=== PATIENT | female | born 1990 | race Caucasian/White ===

== ENCOUNTER 2018-09-28 20:04 | Inpatient (IN) | payer OTHER ==
[~2018-09-28] VITALS: Ht 160 cm; Wt 65.7 kg
[2018-09-28 21:20] VITALS: BP 111/58
[2018-09-28 21:38] LABS: HEMATOCRIT 27.2 % (36.0-47.0); HEMOGLOBIN 8.1 g/dl (12.0-15.5); MEAN CORPUSCULAR HEMOGLOBIN 23.1 pg (27.0-33.0); MEAN CORPUSCULAR HGB CONC 29.8 g/dl (32.0-36.5); MEAN CORPUSCULAR VOLUME 77.7 fl (80.0-96.0); PLATELET COUNT, AUTOMATED 273 10^3/uL (150-450); WHITE BLOOD COUNT 11.5 10^3/uL (4.0-10.0)
[2018-09-28] MEDS ORDERED: MORPHINE 4 MG/ML 1ML VIAL/SYRINGE (J2270) IV PRN (22:00)
[2018-09-28] MEDS ORDERED: ONDANSETRON 4MG/2ML VIAL (J2405) IV PRN (22:00)
[2018-09-28 22:02] LABS: BLOOD UREA NITROGEN 6 MG/DL (7-18); CALCIUM LEVEL 7.1 MG/DL (8.5-10.1); CARBON DIOXIDE LEVEL 18 MEQ/L (21-32); CHLORIDE LEVEL 113 MEQ/L (98-107); CREATININE FOR GFR 0.66 MG/DL (0.55-1.30); GLOMERULAR FILTRATION RATE > 60.0 (>60); GLUCOSE, FASTING 81 MG/DL (70-100); POTASSIUM SERUM 3.7 MEQ/L (3.5-5.1); SODIUM LEVEL 141 MEQ/L (136-145)
--- NOTE | 2018-09-28 22:02 | HPEPDOC ---
[facility] Medical History & Physical Date of Admission Sep 28, 2018 Date of Service: Sep 28, 2018 History and Physical CHIEF COMPLAINT: L. sided abdominal pain HISTORY OF PRESENT ILLNESS: Patient is a 28-year-old female with past medical history of ulcerative colitis status post colectomy and nephrolithiasis presented to the ER at [place] for abdominal pain with concern for sepsis secondary to UTI as well as b/l hydronephrosis on CT scan along with b/l intrarenal calculi and small pericardial effusion. Patient was found to be hypotensive there with BP in the low 80s systolic and was treated with Abx and 4L IVF bolus before BP started to come up to 90s-100s systolic. Patient is found to be febrile and tachycardic to HR >110s, Lactic acid was normal x2. She was transferred from [place] to ICU for further care and urology evaluation. She currently denies any complaints but has a T of 102. PAST MEDICAL HISTORY: Refer to [facility] PAST SURGICAL HISTORY: Colectomy R. tubal ligation Ovarian cystectomy and salpingectomy SOCIAL HISTORY: Denies tobacco or illicit drug use. Social alcohol. FAMILY HISTORY: Father with HTN and Afib ALLERGIES: Please see below. REVIEW OF SYSTEMS: 10 point review of system negative except as stated in [facility] HOME MEDICATIONS: Please see below. PHYSICAL EXAMINATION: General: No acute distress, Alert Eyes: Normal sclera, EOMI, LEENA HENT: Atraumatic, neck supple, moist mucous membranes Cardiovascular: Normal rate, normal rhythm. No murmurs appreciated. Pulmonary: Clear to auscultation b/l, no wheezing GI: Soft, nontender, nondistended Skin: Warm and dry Neuro: CN grossly intact. No focal deficits. Strengths equal b/l. Psych: oriented x 3 LABORATORY DATA: See below. IMAGING: CT from [place]- b/l intrarenal calculi with b/l hydronephrosis as well as small pericardial effusion. MICROBIOLOGY: Please see below. ASSESSMENT AND PLAN: 1. b/l Intrarenal calculi with hydronephrosis with sepsis - CT findings from [place]. - Patient still febrile but BP is more stable now post 30 cc/kg bolus. - c/w Rocephin. - IVF support. Pineda catheter placed. - urology consult. - monitor renal function. 2. UC - No issues at this time. DVT ppx: HSQ Code status: Full code Laboratory Data Labs 24H Laboratory Tests 2 09/28/18 21:31: Nucleated Red Blood Cells % (auto) 0.0 CBC/BMP Laboratory Tests 09/28/18 21:31 Red Blood Count 3.50 L, Mean Corpuscular Volume 77.7 L, Mean Corpuscular Hemoglobin 23.1 L, Mean Corpuscular Hemoglobin Concent 29.8 L, Red Cell Distribution Width 15.1 H Home Medications No Active Prescriptions or Reported Meds A-FIB/CHADSVASC A-FIB History Current/History of A-Fib/PAF?: No DMITRY DURAN MD Sep 28, 2018 22:02
[2018-09-28] MEDS: NS 1,000 ML IV SCH (22:24)
[2018-09-28] MEDS: ACETAMINOPHEN TAB 650MG DOSE (2X325MG) PO PRN (22:24)
[2018-09-28 23:00] VITALS: BP 110/56
[2018-09-29] VITALS (9 sets, daily range): BP systolic 92–117; BP diastolic 47–65
[2018-09-29 04:39] LABS: HEMOGLOBIN 7.8 g/dl (12.0-15.5); MEAN CORPUSCULAR HEMOGLOBIN 22.1 pg (27.0-33.0); MEAN CORPUSCULAR HGB CONC 28.9 g/dl (32.0-36.5); MEAN CORPUSCULAR VOLUME 76.5 fl (80.0-96.0); PLATELET COUNT, AUTOMATED 250 10^3/uL (150-450); RED BLOOD COUNT 3.53 10^6/uL (4.00-5.40); WHITE BLOOD COUNT 11.6 10^3/uL (4.0-10.0)
[2018-09-29 05:00] LABS: BLOOD UREA NITROGEN 4 MG/DL (7-18); CALCIUM LEVEL 7.1 MG/DL (8.5-10.1); CARBON DIOXIDE LEVEL 18 MEQ/L (21-32); CHLORIDE LEVEL 114 MEQ/L (98-107); CREATININE FOR GFR 0.64 MG/DL (0.55-1.30); GLOMERULAR FILTRATION RATE > 60.0 (>60); GLUCOSE, FASTING 71 MG/DL (70-100); POTASSIUM SERUM 4.1 MEQ/L (3.5-5.1); SODIUM LEVEL 140 MEQ/L (136-145)
[2018-09-29] MEDS: NS 1,000 ML IV SCH ×3 (06:19→22:29)
--- NOTE | 2018-09-29 07:52 | SMCUROLCON ---
Urology Consultation General Date of Consultation 09/29/18 Reason For Consultation This patient is seen for Urosepsis. History of Present Illness This is a 28 y/o F w/ a PMH significant for ulcerative colitis and nephrolithiasis, transferred to [facility] ICU from [place] for likely urosepsis. She presented to [place] ER yesterday afternoon w/ a 5 day history of worsening left abd pain radiating to the left flank and fevers. She notes that at first the abd pain was mild and then became a lot worse yesterday. At [place] ER she was noted to have fevers to 102, was tachycardic, and hypotensive w/ SBP in the 80s at times. Her WBC there was 13 and her UA was notable for 40WBC/hpf and positive nitrites. Her Cr was normal at 0.7. A CT A/P was done there and was notable for severely distended bladder w/ b/l hydroureteronephrosis down to the level of the bladder. A 1.2cm nonobstructing stone was also seen in the lower pole of the left kidney. She was treated w/ rocephin in [place] and transferred to [facility] for ICU care. This morning the patient notes feeling better. Her pain is improved. Her T max here was 101.6 at midnight and has been trending down. She denied having dysuria or any urinary symptoms prior to her presentation to the ER. She denied having any feelings of incomplete emptying. Past Medical History Medical History see HPI Surgical Hstory partial colectomy for UC Medications Current Medications Current Medications Acetaminophen (Tylenol Tab) 650 mg Q4H PRN PO PAIN OR FEVER Last administered on 09/28/18at 22:24; Start 09/28/18 at 21:30 Ceftriaxone Sodium 1 gm/ Dextrose 50 ml @ 100 mls/hr Q24H IV ; Start 09/29/18 at 09:00 Home Med (Med Rec Complete!) ASDIRECTED XX ; Start 09/28/18 at 22:00; Stop 09/28/18 at 22:00; Status DC Morphine Sulfate (Morphine Sulfate Inj) 1 mg Q3HP PRN IV PAIN; Start 09/28/18 at 22:00 Ondansetron HCl (ZOFRAN INJection) 4 mg Q6HP PRN IV NAUSEA OR VOMITING; Start 09/28/18 at 22:00 Sodium Chloride 1,000 ml @ 125 mls/hr Q8H IV Last administered on 09/29/18at 06:19; Start 09/28/18 at 21:45 Allergies Allergies: Coded Allergies: meperidine (Verified Allergy, Mild, RASH, 09/28/18) Review of Systems Constitutional: Reports: Fever (yesterday) Pulmonary: Denies: Dyspnea, Cough Cardiovascular: Denies Chest Pain, Denies Palpitations Gastrointestinal: Reports: Abdominal Pain (left lower abd pain); Denies: Nausea, Vomiting Genitourinary: Denies: Dysuria, Frequency, Incontinence, Hematuria, Retention Musculoskeletal: Reports: Back Pain (left flank pain) Neurological: Denies: Weakness, Numbness, Incoordination, Change in Speech Psych: Reports: Mood Normal; Denies: Anxiety, Depression Physical Examination General Exam: Alert, Cooperative, No Acute Distress Chest Exam: Normal air movement Heart Exam: Regular Rhythm Abdomen Exam: Soft, Tenderness (mild LLQ tenderness) Skin Exam: Nl turgor and temperature Neuro Exam: Normal Speech Psych Exam: Mental status NL, Mood NL Vital Signs/I&O Vital Signs Date Time Temp Pulse Resp B/P (MAP) Pulse Ox O2 Delivery O2 Flow Rate FiO2 09/29/18 04:00 99.9 88 16 102/58 (73) 100 I&O- Last 24 Hours up to 6 AM 09/29/18 06:00 Intake Total 1740 ml Output Total 750 ml Balance 990 ml Laboratory Data 24H Labs Laboratory Tests 2 09/28/18 21:31: Nucleated Red Blood Cells % (auto) 0.0, Anion Gap 10, Glomerular Filtration Rate > 60.0, Blood Urea Nitrogen 6L, Creatinine 0.66, Sodium Level 141, Potassium Level 3.7, Chloride Level 113H, Carbon Dioxide Level 18L, Calcium Level 7.1L, Magnesium Level 2.0 09/29/18 04:19: Nucleated Red Blood Cells % (auto) 0.0, Anion Gap 8, Glomerular Filtration Rate > 60.0, Blood Urea Nitrogen 4L, Creatinine 0.64, Sodium Level 140, Potassium Level 4.1, Chloride Level 114H, Carbon Dioxide Level 18L, Calcium Level 7.1L 09/29/18 07:20: CBC/BMP Laboratory Tests 09/28/18 21:31 Red Blood Count 3.50 L, Mean Corpuscular Volume 77.7 L, Mean Corpuscular Hemoglobin 23.1 L, Mean Corpuscular Hemoglobin Concent 29.8 L, Red Cell Distribution Width 15.1 H, Calcium Level 7.1 L 09/29/18 04:19 Red Blood Count 3.53 L, Mean Corpuscular Volume 76.5 L, Mean Corpuscular Hemoglobin 22.1 L, Mean Corpuscular Hemoglobin Concent 28.9 L, Red Cell Distribution Width 15.2 H, Calcium Level 7.1 L Microbiology Microbiology 09/29/18 Blood Culture, Received Pending 09/29/18 Blood Culture, Received Pending 09/29/18 Urine Culture, Received Pending Assessment This is a 28 y/o F w/ likely urosepsis and b/l hydroureteronephrosis and a 1.2cm nonobstructing left kidney stone. Her CT A/P was reviewed and it appears that her b/l hydroureteronephrosis was likely due to the very distended bladder. She is improving clinically w/ IV abx and bladder drainage. I recommended getting a renal US to assess for improvement in the b/l hydro now that she has a catheter is in place. Plan - continue ICU care and broad spectrum abx per hospitalist service - f/u blood and urine culture results - keep catheter in for now - renal US (ordered) - keep NPO for now ERON HOWE MD Sep 29, 2018 07:37
--- NOTE | 2018-09-29 09:49 | REP ---
RENAL ULTRASOUND: HISTORY: Urosepsis. The kidneys are normal in echogenicity. The right kidney measures 4.8 cm in transverse by 3.3 cm in AP by 11.9 in cephalocaudal dimensions. The left kidney measures 5.2 cm in transverse by 5.1 cm in AP by 12.2 cm in cephalocaudal dimensions. There is mild left hydronephrosis. There is no right hydronephrosis. There is no mass. A 1 cm calcification is present in the lower pole of the left kidney. A Pineda catheter is present in the urinary bladder. A cyst is present in the left ovary. This measures 5 cm in maximum dimension. IMPRESSION: 1. Mild left hydronephrosis. 2. Left nephrocalcinosis. 3. 5 cm left ovarian cyst. Electronically Signed by Willie Ortega MD 09/29/2018 09:54 A
[2018-09-29] MEDS: cefTRIAXone SOD 1 GM in D5W MINI-BAG PLUS 50 ML IV SCH (09:50)
--- NOTE | 2018-09-29 14:06 | IPNPDOC ---
Text Note Date of Service The patient was seen on 09/29/18. NOTE Fatuma is seen on bedside rounds this morning, she states she is doing well, the pain in her left flank area is improving. She has no abdominal pain, pain with urination and has not noted any blood in her urine. She feels well otherwise, is a bit fatigued. Otherwise denies sob, cp, n/v or fevers. ROS: 12 point ROS reviewed with patient and only positive for above findings PE: Vitals: see below General: This is a 28 yo female laying comfortably in bed, NAD, speaking in full sentences HEENT: EOMI, moist mucus membranes, no JVD Resp: CTA b/l, no wheezing, rales or rhonchi Cardiac: normal s1 and s2., no murmurs, rubs or gallops Abdomen: soft, non tender, non distended, no rebound ridgity or guarding, some left flank tenderness to deep palpation, nabsx4, no hepatosplenomegaly or masses appreciated Extremities: no cyanosis, mottling or edema A&P: This is a 28 yo female who presented to [facility] with left sided flank pain and was transferred to [facility] for urosepsis. 1. Sepsis - 2/2 complicated urinary tract infection, in the setting of nephrolithiasis and hydronephrosis -urology consulted, appreciate their help, pt continues on ceftriaxone and IVF, c/w these for now -blood and urine cx still pending -will likely need to follow up on culture results from [facility] (re: pre-antibiotic cultures) -she has been afebrile since midnight when temp was 101.6 F, WBC stable, lactic .6 -renal u/s pending -pain control with morphine -zofran for n/v 2. Anemia -likely secondary to dilutional effect from IVF, continue to monitor for now, iron studies pending 3. DVT px -lovenox Disposition: Pt is doing well, renal u/s pending, c/w abx and IVF at this time. Pain well controlled. VS,Fishbone, I+O VS, Fishbone, I+O Laboratory Tests 09/28/18 21:31 Red Blood Count 3.50 L, Mean Corpuscular Volume 77.7 L, Mean Corpuscular Hemoglobin 23.1 L, Mean Corpuscular Hemoglobin Concent 29.8 L, Red Cell Dis tribution Width 15.1 H, Calcium Level 7.1 L 09/29/18 04:19 Red Blood Count 3.53 L, Mean Corpuscular Volume 76.5 L, Mean Corpuscular Hemoglobin 22.1 L, Mean Corpuscular Hemoglobin Concent 28.9 L, Red Cell Distribution Width 15.2 H, Calcium Level 7.1 L Vital Signs Date Time Temp Pulse Resp B/P (MAP) Pulse Ox O2 Delivery O2 Flow Rate FiO2 09/29/18 11:56 100.6 101 17 107/56 (73 98 I&O- Last 24 Hours up to 6 AM 09/29/18 06:00 Intake Total 1740 ml Output Total 750 ml Balance 990 ml GME ATTESTATION GME ATTESTATION My faculty preceptor for this patient encounter was physically present during the encounter and was fully available. All aspects of the patient interview, e xamination, medical decision making process, and medical care plan development were reviewed and approved by the faculty preceptor. The faculty preceptor is aware and concurs with the plan as stated in the body of this note and will attest to such by his/her cosignature. ATTENDING NOTE I, Miranda Brewer, have both independently examined this patient as well as reviewed the documentation. I have discussed in detail with the resident the findings and plan of treatment as documented by the resident. I agree with their findings and treatment plan. I will continue to follow the patient and offer further guidance to the patients care as necessary during this hospital stay. PRANAY SHEPARD DO Sep 29, 2018 14:06 MIRANDA BREWER MD Sep 29, 2018 15:00
[2018-09-29] MEDS: ENOXAPARIN 40 MG/0.4 ML SYRINGE (J1650) SC SCH (15:22)
[2018-09-29 19:10] LABS: BLOOD UREA NITROGEN 2 MG/DL (7-18); CALCIUM LEVEL 7.6 MG/DL (8.5-10.1); CARBON DIOXIDE LEVEL 16 MEQ/L (21-32); CHLORIDE LEVEL 113 MEQ/L (98-107); CREATININE FOR GFR 0.62 MG/DL (0.55-1.30); GLOMERULAR FILTRATION RATE > 60.0 (>60); GLUCOSE, FASTING 107 MG/DL (70-100); POTASSIUM SERUM 3.7 MEQ/L (3.5-5.1); SODIUM LEVEL 140 MEQ/L (136-145)
[2018-09-29 19:16] LABS: PERCENT SATURATION 2.9 % (13.2-45.0)
[2018-09-29] MEDS: ACETAMINOPHEN TAB 650MG DOSE (2X325MG) PO PRN (21:27)
[2018-09-30] VITALS: BP 113/55
[2018-09-30 04:00] VITALS: BP 110/59
[2018-09-30 06:00] VITALS: BP 109/68
[2018-09-30] MEDS: NS 1,000 ML IV SCH (06:48)
[2018-09-30 08:05] LABS: BASO # 0.1 10^3/uL (0.0-0.2); BASO % 1.2 % (0.0-1.0); EOS # 0.2 10^3/uL (0.0-0.50); EOS % 2.3 % (0.0-3.0); HEMATOCRIT 27.5 % (36.0-47.0); HEMOGLOBIN 8.1 g/dl (12.0-15.5); LYMPH # 2.4 10^3/uL (1.5-6.5); LYMPH % 34.9 % (24.0-44.0); MEAN CORPUSCULAR HEMOGLOBIN 22.3 pg (27.0-33.0); MEAN CORPUSCULAR HGB CONC 29.5 g/dl (32.0-36.5); MEAN CORPUSCULAR VOLUME 75.8 fl (80.0-96.0); NEUTROPHILS # 3.2 10^3/uL (1.8-7.7); NEUTROPHILS % 46.3 % (36.0-66.0); PLATELET COUNT, AUTOMATED 295 10^3/uL (150-450); RED BLOOD COUNT 3.63 10^6/uL (4.00-5.40); WHITE BLOOD COUNT 6.9 10^3/uL (4.0-10.0)
[2018-09-30] MEDS: cefTRIAXone SOD 1 GM in D5W MINI-BAG PLUS 50 ML IV SCH (08:22)
[2018-09-30] MEDS: ENOXAPARIN 40 MG/0.4 ML SYRINGE (J1650) SC SCH (08:23)
[2018-09-30 08:30] LABS: BLOOD UREA NITROGEN 1 MG/DL (7-18); CARBON DIOXIDE LEVEL 22 MEQ/L (21-32); CHLORIDE LEVEL 114 MEQ/L (98-107); CREATININE FOR GFR 0.51 MG/DL (0.55-1.30); GLOMERULAR FILTRATION RATE > 60.0 (>60); GLUCOSE, FASTING 92 MG/DL (70-100); SODIUM LEVEL 142 MEQ/L (136-145)
[2018-09-30] MEDS ORDERED: FERROUS SULFATE 325MG TAB PO SCH (09:00)
[2018-09-30 09:57] LABS: CREATININE,RANDOM URINE 14.2 MG/DL; POTASSIUM RANDOM URINE 4.4 MEQ/L
--- NOTE | 2018-09-30 10:51 | DS.PDOC ---
Discharge Summary General Date of Admission Sep 28, 2018 at 21:15 Date of Discharge 09/30/18 Discharge Summary DISCHARGE DIAGNOSIS: Sepsis 2/2 Complicated Urinary tract infection, in the setting of b/l hydrour eteronephrosis and a 1.2cm nonobstructing left kidney stone SECONDARY DIAGNOSIS: Anemia - likely 2/2 iron deficiency PROCEDURES PERFORMED DURING STAY: None CONSULTANTS: Urology HOSPITAL COURSE: During the course of the hospital stay, she was treated with IVF and IV abx., she had rick cath. placed and was seen by urology inpatient. She states that her left flank pain/discomfort has resolved, she has no abdominal discomfort, she feels well and would like to go home, she has been walking around the room without difficulty. She is eating and drinking well, no pain with urination, her rick cath was pulled at about 6 am., since then she has had two voids with about 100 cc and then about 40 cc residual on PVR checks. She will follow up with pcp and urology outpatient within 5-7 days of dc. uLcho echols with [facility] where she presented first, it looks like her urine cultures were positive for enterobacter aerogenes, we have their sensitivities., she will be d/c on oral abx. She did have anemia during the hospital stay, iron studies suggest iron def. anemia, no blood transfusion took place, she was stable, we will d/c her on oral iron supplementation. No active source of bleeding suspected during stay. DISCHARGE MEDICATIONS: Please see below. ALLERGIES: Please see below. SUBJECTIVE: Patient is sitting upright in bed watching her ipad Netflix., she feels well. She wants to go home. Otherwise patient denies chest pain, shortness, breath, nausea, vomiting, fevers, chills. OBJECTIVE: PHYSICAL EXAMINATION: VITAL SIGNS: Please see below. GENERAL: Pleasant 28 year old female, sitting up in bed awake alert oriented speaking in complete sentences no acute distress HEENT: Moist mucous membranes no elevation and CVP CARDIOVASCULAR: normal S1 S2 regular no additional heart sounds appreciated RESPIRATORY: Clear to auscultation bilaterally, no rales, rhonchi or wheezing appreciated ABDOMINAL: abdomen soft and nontender, nabsx4, no rebound ridgity or guarding, no distension, no hepatosplenomegaly and no distension EXTREMITIES: No clubbing, cyanosis, edema NEUROLOGICAL: Spontaneously moves all 4 extremities no gross focal deficits appreciated PSYCHOLOGICAL: Appropriate affect LABORATORY DATA, MICROBIOLOGY:Urine cx pending at time of d/c and blood cx neg in our facility this admission, however urine cx taken .09.11 from [place] was faxed to us and shows + urine cx for enterobacter areogenes with sensitivities. ASSESSMENT AND PLAN: This is a 28 yo female who was transferred to [facility] from [facility] for Urosepsis. PROBLEMS: 1. Sepsis 2/2 complicated UTI, int he setting of b/l hydroureteronephrosis and a 1.2cm nonobstructing left kidney stone 2. Anemia DISPOSITION: Stable to go home DISCHARGE CONDITION: Improved and Stable [PROGNOSIS]: favorable FOLLOW UP: - Follow up with PCP and Urology within 5-7 days - Remain compliant with treatment plan and medications - Return to the ER if you experience any problems ACTIVITY: As prior to admission DIET: As prior to admission TIME SPENT ON DISCHARGE: 50 minutes Vital Signs/I&Os Vital Signs Date Time Temp Pulse Resp B/P (MAP) Pulse Ox O2 Delivery O2 Flow Rate FiO2 09/30/18 06:00 96.8 80 18 109/68 (82) 100 I&O- Last 24 Hours up to 6 AM 09/30/18 06:00 Intake Total 3890 ml Output Total 3250 ml Balance 640 ml Laboratory Data Labs 24H Laboratory Tests 2 09/29/18 18:34: Reticulocyte # (auto) 35.1, Percent Reticulocyte Count 1.0, Reticulocyte Hemoglobin Equivalent 22.9L, Anion Gap 11, Glomerular Filtration Rate > 60.0, Blood Urea Nitrogen 2L, Creatinine 0.62, Sodium Level 140, Potassium Level 3.7, Chloride Level 113H, Carbon Dioxide Level 16L, Calcium Level 7.6L, Magnesium Level 2.0, Iron Level 8L, Total Iron Binding Capacity 275, Transferrin % Satur ation 2.9L, Ferritin 44 09/30/18 07:49: Anion Gap 6L, Glomerular Filtration Rate > 60.0, Blood Urea Nitrogen 1L, Creatinine 0.51L, Sodium Level 142, Potassium Level 4.0, Chloride Level 114H, Carbon Dioxide Level 22, Calcium Level 8.0L, Magnesium Level 2.0, Immature Granulocyte % (Auto) 0.3, White Blood Count 6.9, Red Blood Count 3.63L, Hemoglobin 8.1L, Hematocrit 27.5L, Mean Corpuscular Volume 75.8L, Mean Corpuscular Hemoglobin 22.3L, Mean Corpuscular Hemoglobin Concent 29.5L, Red Cell Distribution Width 15.1H, Platelet Count 295, Neutrophils (%) (Auto) 46.3, Lymphocytes (%) (Auto) 34.9, Monocytes (%) (Auto) 15.0H, Eosinophils (%) (Auto) 2.3, Basophils (%) (Auto) 1.2H, Neutrophils # (Auto) 3.2, Lymphocytes # (Auto) 2.4, Monocytes # (Auto) 1.0H, Eosinophils # (Auto) 0.2, Basophils # (Auto) 0.1, Nucleated Red Blood Cells % (auto) 0.0 09/30/18 08:00: Urine Random Creatinine 14.2, Urine Random Sodium 76, Urine Random Potassium 4.4, Urine Random Chloride 93 CBC/BMP Laboratory Tests 09/29/18 18:34 Calcium Level 7.6 L 09/30/18 07:49 Calcium Level 8.0 L, Red Blood Count 3.63 L, Mean Corpuscular Volume 75.8 L, Mean Corpuscular Hemoglobin 22.3 L, Mean Corpuscular Hemoglobin Concent 29.5 L, Red Cell Distribution Width 15.1 H, Neutrophils (%) (Auto) 46.3, Lymphocytes (%) (Auto) 34.9, Monocytes (%) (Auto) 15.0 H, Eosinophils (%) (Auto) 2.3, Basophils (%) (Auto) 1.2 H, Neutrophils # (Auto) 3.2, Lymphocytes # (Auto) 2.4, Monocytes # (Auto) 1.0 H, Eosinophils # (Auto) 0.2, Basophils # (Auto) 0.1 Microbiology Microbiology 09/29/18 Blood Culture - Preliminary, Resulted No growth after 24 hours . All specim... 09/29/18 Blood Culture - Preliminary, Resulted No growth after 24 hours . All specim... 09/29/18 Urine Culture, Received Pending Discharge Medications Scheduled Ferrous Sulfate (Ferrous Sulfate) 325 Mg Tablet, 325 MG PO BID Levofloxacin (Levofloxacin) 750 Mg Tablet, 1 TAB PO DAILY Allergies Coded Allergies: meperidine (Verified Allergy, Mild, RASH, 09/28/18) GME ATTESTATION GME ATTESTATION My faculty preceptor for this patient encounter was physically present during the encounter and was fully available. All aspects of the patient interview, examination, medical decision making process, and medical care plan development were reviewed and approved by the faculty preceptor. The faculty preceptor is aware and concurs with the plan as stated in the body of this note and will attest to such by his/her cosignature. ATTENDING NOTE I, Miranda Del Toro, have both independently examined this patient as well as reviewed the documentation. I have discussed in detail with the resident the findings and plan of treatment as documented by the resident. I agree with their findings and treatment plan. I will continue to follow the patient and offer further guidance to the patients care as necessary during this hospital stay. Time spent on discharge 35 minutes PRANAY SHEPARD DO Sep 30, 2018 10:51 MIRANDA DEL TORO MD Sep 30, 2018 14:02
[2018-09-30] MEDS ORDERED: LEVO750T13 PO (10:55)
[2018-09-30] MEDS ORDERED: FERR325T18 PO (10:55)
--- NOTE | 2018-09-30 12:15 | IPNPDOC ---
Subjective Review oF Systems Chief Complaint The patient is a 28-year-old female admitted with a reason for visit of Urosepsis. Events since Last Encounter No acute events o/n. Patient notes she feels much better today. Denies flank or abd pain. No f/c/ns. Objective Physical Examination General Exam: Alert, Cooperative, No Acute Distress ABDOMEN EXAM: Soft; No: Tenderness, Mass Skin Exam: Nl turgor and temperature Neuro Exam: Normal Speech Psych Exam: Mental status NL, Mood NL Vital Signs/I&O Vital Signs Date Time Temp Pulse Resp B/P (MAP) Pulse Ox O2 Delivery O2 Flow Rate FiO2 09/30/18 06:00 96.8 80 18 109/68 (82) 100 I&O- Last 24 Hours up to 6 AM 09/30/18 06:00 Intake Total 3890 ml Output Total 3250 ml Balance 640 ml Laboratory Data Labs 24H Laboratory Tests 2 09/29/18 18:34: Reticulocyte # (auto) 35.1, Percent Reticulocyte Count 1.0, Reticulocyte Hemoglobin Equivalent 22.9L, Anion Gap 11, Glomerular Filtration Rate > 60.0, Blood Urea Nitrogen 2L, Creatinine 0.62, Sodium Level 140, Potassium Level 3.7, Chloride Level 113H, Carbon Dioxide Level 16L, Calcium Level 7.6L, Magnesium Level 2.0, Iron Level 8L, Total Iron Binding Capacity 275, Transferrin % Saturation 2.9L, Ferritin 44 09/30/18 07:49: Anion Gap 6L, Glomerular Filtration Rate > 60.0, Blood Urea Nitrogen 1L, Creatinine 0.51L, Sodium Level 142, Potassium Level 4.0, Chloride Level 114H, Carbon Dioxide Level 22, Calcium Level 8.0L, Magnesium Level 2.0, Immature Granulocyte % (Auto) 0.3, White Blood Count 6.9, Red Blood Count 3.63L, Hemoglobin 8.1L, Hematocrit 27.5L, Mean Corpuscular Volume 75.8L, Mean Corpuscular Hemoglobin 22.3L, Mean Corpuscular Hemoglobin Concent 29.5L, Red Cell Distribution Width 15.1H, Platelet Count 295, Neutrophils (%) (Auto) 46.3, Lymphocytes (%) (Auto) 34.9, Monocytes (%) (Auto) 15.0H, Eosinophils (%) (Auto) 2.3, Basophils (%) (Auto) 1.2H, Neutrophils # (Auto) 3.2, Lymphocytes # (Auto) 2.4, Monocytes # (Auto) 1.0H, Eosinophils # (Auto) 0.2, Basophils # (Auto) 0.1, Nucleated Red Blood Cells % (auto) 0.0 09/30/18 08:00: Urine Random Creatinine 14.2, Urine Random Sodium 76, Urine Random Potassium 4.4, Urine Random Chloride 93 CBC/BMP Laboratory Tests 09/29/18 18:34 Calcium Level 7.6 L 09/30/18 07:49 Calcium Level 8.0 L, Red Blood Count 3.63 L, Mean Corpuscular Volume 75.8 L, Mean Corpuscular Hemoglobin 22.3 L, Mean Corpuscular Hemoglobin Concent 29.5 L, Red Cell Distribution Width 15.1 H, Neutrophils (%) (Auto) 46.3, Lymphocytes (%) (Auto) 34.9, Monocytes (%) (Auto) 15.0 H, Eosinophils (%) (Auto) 2.3, Basophils (%) (Auto) 1.2 H, Neutrophils # (Auto) 3.2, Lymphocytes # (Auto) 2.4, Monocytes # (Auto) 1.0 H, Eosinophils # (Auto) 0.2, Basophils # (Auto) 0.1 Microbiology Microbiology 09/29/18 Blood Culture - Preliminary, Resulted No growth after 24 hours . All specim... 09/29/18 Blood Culture - Preliminary, Resulted No growth after 24 hours . All specim... 09/29/18 Urine Culture, Received Pending Assessment/Plan Date Seen The patient was seen on 09/30/18. Patient Summary This is a 28 y/o F w/ urosepsis and b/l hydroureteronephrosis and a 1.2cm nonobstructing left kidney stone. Renal US done yesterday showed resolution of hydro on the right and mild hydro on the left and an empty bladder, indicating that hydro seen on CT scan was due to a very distended bladder. Her catheter was removed today and PVRs were 100cc after the 1st void and 40cc after the 2nd void. Her blood cultures from [place] have come back positive. Plan/VTE VTE Prophylaxis Ordered?: Yes VTE Exclusion Mechanical Proph: N/A:VTE Prophy Ordered Plan - no need for catheterization as the patient's PVRs have been low - f/u culture results and adjust abx accordingly - my office will schedule f/u for the patient to be seen in 1-2 wks - we will check another PVR at that time to ensure she is still emptying well and discuss treatment for her left kidney stone (either ESWL or ureteroscopy w/ laser lithotripsy) ERON HOWE MD Sep 30, 2018 12:15
--- NOTE | 2018-09-30 18:29 | ECHO ---
DATE OF PROCEDURE: 09/29/2018 Date of : 1990 Age: 28 Height: 63 inches Weight: 152 pounds Body surface area: 1.72 meters squared Inpatient: Intensive care unit (ICU), Room 3209. REFERRING PHYSICIAN: Dr. Shelley Paredes INDICATION: Pericardial effusion. MEASUREMENTS: 2D Measurements: RV: 3.8 cm LV: 4.6 cm Septum: 0.9 cm Posterior wall: 0.9 cm Aortic root: 2.5 cm LA: 3.1 cm LVEF: 75% Doppler Measurements: AV: 1.6 meters per second LVOT: 1.2 meters per second LVOT diameter: 2.1 cm MV-E: 120, A: 100, EA ratio: 1.2 Early mitral deceleration time: 173 milliseconds E prime: 12.4, A prime: 8, E/E prime ratio: 9.8 PV: 1.1 meters per second Pulmonary artery acceleration time: 141 milliseconds RVSP: 24 mmHg IVC: 2.2 cm COMMENTS: Normal sinus rhythm without intraventricular conduction disturbance. M-mode and two-dimensional echocardiography was performed with pulsed, continuous wave, color flow and tissue Doppler studies. Normal left ventricular size, wall thickness and hyperkinetic wall motion. Normal left atrial size and Doppler assessment of left ventricular (LV) diastolic function and mean left atrial pressure. Normal right heart chamber sizes and motion with normal estimated pulmonary arterial pressure. Normal inferior vena cava (IVC) size upper limits of normal with normal respiratory collapse against an elevated central venous pressure. Normal appearing and functioning valvular structures. Normal aortic root size. No apparent intracardiac mass or pericardial effusion.
== END 2018-09-30 15:20 | disposition home or self-care (01) | DRG 872 ==
LOC: M ICU 21:15 → M MSPAV 09-30 05:08
PROVIDERS: ADMIT Student in an Organized Health Care Education/Training Program; ATTEND Internal Medicine
DX: A41.9 Sepsis, unspecified organism (principal); N39.0 Urinary tract infection, site not specified; N13.2 Hydronephrosis with renal and ureteral calculous obstruction; D64.9 Anemia, unspecified; Z90.49 Acquired absence of other specified parts of digestive tract; Z88.8 Allergy status to other drugs, medicaments and biological substances

== ENCOUNTER → 2018-10-28 | Outpatient (CLI) | payer OTHER ==
[~2018-10-28] MED LIST: FERR1TAB8 PO; FERR325T18 PO; LEVO750T13 PO
[2018-10-28 12:35] LABS: HEMATOCRIT 34.9 % (36.0-47.0); HEMOGLOBIN 10.3 g/dl (12.0-15.5); MEAN CORPUSCULAR HGB CONC 29.5 g/dl (32.0-36.5); MEAN CORPUSCULAR VOLUME 77.9 fl (80.0-96.0); PLATELET COUNT, AUTOMATED 381 10^3/uL (150-450); RED BLOOD COUNT 4.48 10^6/uL (4.00-5.40); WHITE BLOOD COUNT 11.1 10^3/uL (4.0-10.0)
[2018-10-28 12:38] LABS: APPEARANCE, URINE CLEAR (CLEAR); BACTERIA, URINE AUTO NEGATIVE (NEGATIVE); BILIRUBIN, URINE AUTO NEGATIVE (NEGATIVE); BLOOD, URINE BLOOD NEGATIVE (NEGATIVE); COLOR, URINE STRAW (YELLOW); GLUCOSE, URINE (UA) AUTO NEGATIVE (NEGATIVE); KETONE, URINE AUTO NEGATIVE (NEGATIVE); LEUKOCYTE ESTERASE, URINE AUTO NEGATIVE (NEGATIVE); NITRITE, URINE AUTO NEGATIVE (NEGATIVE); PROTEIN, URINE AUTO NEGATIVE (NEGATIVE); RBC, URINE AUTO 2 /HPF (0-3); SPECIFIC GRAVITY URINE AUTO 1.003 (1.002-1.035); SQUAMOUS EPITHELIAL CELL UR AU 0 /HPF (0-6); UROBILINOGEN, URINE AUTO 0.2 mg/dL (0.0-2.0); WBC, URINE AUTO 1 /HPF (0-3)
[2018-10-28 12:47] LABS: INR 1.07; PROTHROMBIN TIME 13.6 SECONDS (11.8-14.0)
[2018-10-28 12:48] LABS: PARTIAL THROMBOPLASTIN TIME 30.1 SECONDS (25.0-38.4)
[2018-10-28 13:02] LABS: BLOOD UREA NITROGEN 15 MG/DL (7-18); CALCIUM LEVEL 9.3 MG/DL (8.5-10.1); CARBON DIOXIDE LEVEL 27 MEQ/L (21-32); CHLORIDE LEVEL 105 MEQ/L (98-107); CREATININE FOR GFR 0.85 MG/DL (0.55-1.30); GLOMERULAR FILTRATION RATE > 60.0 (>60); GLUCOSE, FASTING 78 MG/DL (70-100); POTASSIUM SERUM 3.9 MEQ/L (3.5-5.1); SODIUM LEVEL 138 MEQ/L (136-145)
== END ==
LOC: M LAB 11:40
PROVIDERS: ATTEND Nurse Practitioner Family
DX: N20.0 Calculus of kidney (principal); Z01.818 Encounter for other preprocedural examination

== ENCOUNTER 2018-11-01 09:46 | Day surgery (SDC) | payer OTHER ==
[~2018-11-01] VITALS: Ht 160 cm; Wt 62.1 kg
[~2018-11-01 09:46] MED LIST changes: +LR 1,000 ML IV ONE
[2018-11-01] MEDS ORDERED: LIDOCAINE 2% INJ 100 MG/5 ML SDV (FOR ANES.) As Ordered ONE (09:52)
[2018-11-01] MEDS ORDERED: PROPOFOL 200 MG/20 ML VIAL As Ordered ONE (09:52)
[2018-11-01] MEDS ORDERED: fentaNYL 100 MCG/2 ML INJECTION (J3010) As Ordered ONE (09:53)
[2018-11-01] MEDS ORDERED: MIDAZOLAM INJ 2 MG/2 ML VIAL (J2250) As Ordered ONE (09:53)
[2018-11-01 10:26] LABS: URINE PREG TEST NEGATIVE (NEGATIVE)
[2018-11-01] MEDS ORDERED: CONRAY-60 60% 50ML VIAL (Q9961) As Ordered ONE (11:48)
[2018-11-01] MEDS ORDERED: dexameTHASONE 4 MG/ML 1ML VIAL (J1100) As Ordered ONE (12:17)
[2018-11-01] MEDS ORDERED: ONDANSETRON 4MG/2ML VIAL (J2405) As Ordered ONE (12:17)
[2018-11-01] MEDS ORDERED: METOCLOPRAMIDE INJ 10MG/2ML VIAL (J2765) As Ordered ONE (12:35)
[2018-11-01] MEDS ORDERED: ePHEDrine SULFATE 25 MG/5 ML(5MG/ML) SYRINGE As Ordered ONE (12:41)
--- NOTE | 2018-11-01 13:19 | REP ---
Retrograde pyelogram: Two views. History: Cyst O. Findings: A sequence of two last image hold fluoroscopically obtained spot radiographs of the abdomen document left ureteral cannulation, contrast injection, and stent placement. 14 seconds of fluoroscopy time is reported. Electronically Signed by Kaveh Lara MD 11/01/2018 01:10 P
[2018-11-01] MEDS ORDERED: ONDANSETRON 4MG/2ML VIAL (J2405) IV PRN (13:30)
[2018-11-01] MEDS ORDERED: PERCOCET 5MG/325MG TAB PO PRN ×2 (13:30)
[2018-11-01] MEDS ORDERED: fentaNYL 100 MCG/2 ML INJECTION (J3010) IV PRN (13:30)
[2018-11-01] MEDS ORDERED: LR 1,000 ML IV SCH (13:30)
[2018-11-01] MEDS ORDERED: HYDROMORPHONE HCL 0.5 MG/ 0.5 ML SYRINGE (J1170 PER 1) IV PRN (13:30)
[2018-11-01] MEDS ORDERED: oxyBUTYnin 5 MG TAB PO PRN (13:30)
[2018-11-01 14:30] VITALS: BP 111/51
--- NOTE | 2018-11-03 08:34 | RO ---
DATE OF PROCEDURE: 11/01/2018 PREPROCEDURE DIAGNOSIS: Left kidney stone. POSTPROCEDURE DIAGNOSIS: Left kidney stone. PROCEDURE: Cystoscopy, left ureteroscopy, laser lithotripsy with basket extraction of stones, left retrograde pyelogram with intraoperative interpretation of images, left ureteral stent placement. SURGEON: Dr. Ryan Holloway [employer] TE[employer]ER: None. ANESTHESIA: General. OPERATIVE INDICATIONS: This is a 28-year-old female who was found to have a 1.2 cm lower pole left kidney stone recently. She was brought to the operating room today for the above listed procedure. DESCRIPTION OF PROCEDURE: The patient was brought to the operating room, where general anesthesia was induced. Prophylactic antibiotics were infused. She was then placed in the dorsal lithotomy position and prepped and draped in the usual sterile fashion. A rigid cystoscope was then inserted into the urethral meatus and advanced into the bladder. Once inside the bladder, a guidewire was advanced up the left collecting system. I then advanced a ureteral access sheath up the left collecting system. I went back in the sheath with a flexible ureteroscope. The 1.2 cm stone was seen in the lower pole calyx. The stone was grasped with a basket and repositioned to the upper pole calyx. The stone was fragmented into smaller pieces using a 200 micron laser fiber. All the fragments were removed using a basket. Once satisfied all the fragments were removed, a retrograde pyelogram was performed and noted mild left hydronephrosis and no extravasation. I then withdrew the ureteroscope along with the access sheath and no additional stones were seen within the ureter. I utilized a wire to advanced a #6-Kosovan x 22-32 cm JJ ureteral stent up the left collecting system. The wire was then removed, and there were adequate curls of the stent in the left renal pelvis and in the bladder. The bladder was then emptied of all fluid, and this marked the conclusion of the procedure. The patient was then taken out of the dorsal lithotomy position, awakened from anesthesia, and transported to the recovery room in stable condition. ESTIMATED BLOOD LOSS: 5 mL. COMPLICATIONS: None. SPECIMENS: Kidney stone fragments. PLAN: The patient will followup in the clinic in a week or two for stent removal.
== END 2018-11-01 15:00 | disposition home or self-care (01) ==
LOC: M SDC 09:46
PROVIDERS: ATTEND Urology
DX: N20.0 Calculus of kidney (principal); R33.9 Retention of urine, unspecified; K51.90 Ulcerative colitis, unspecified, without complications; D64.9 Anemia, unspecified; Z88.8 Allergy status to other drugs, medicaments and biological substances
CPT/HCPCS: 52356; 74420; 82360; 84703; 88300; C1769; C1894; C2617; J0690; J1100; J2250; J2405; J2765; J3010; Q9961

== ENCOUNTER → 2018-11-17 | Outpatient (CLI) | payer OTHER ==
[~2018-11-17] MED LIST changes: -LR 1,000 ML IV ONE
--- NOTE | 2018-11-18 09:23 | REP ---
Clinical: Kidney stone. Technique: Single supine view of the abdomen and pelvis. Comparison: None. Findings: Left ureteral stent in satisfactory position. Small left intrarenal calculi measuring up to approximately 3 mm are suspected. No obvious ureteral calcification noted. Surgical clips scattered within the abdomen and pelvis. Bowel gas pattern is nonspecific. No organomegaly. Skeletal structures are intact. Impression: Left ureteral stent in satisfactory position. Suspected small nonobstructing left renal calculi up to 3 mm. Electronically Signed by Mike Martínez MD 11/18/2018 09:15 A
== END ==
LOC: M SMT 08:14
PROVIDERS: ATTEND Specialist
DX: N20.0 Calculus of kidney (principal)

== ENCOUNTER → 2018-12-01 | Outpatient (REF) | payer OTHER ==
[2018-12-03 14:10] LABS: HPV HYBRID CAPTURE II Negative (Negative)
== END ==
LOC: M LAB REF 17:15
PROVIDERS: ATTEND Advanced Practice Midwife
DX: Z12.4 Encounter for screening for malignant neoplasm of cervix (principal); R87.610 Atypical squamous cells of undetermined significance on cytologic smear of cervix (ASC-US)
CPT/HCPCS: 87624; G0123

== ENCOUNTER → 2020-06-07 | Outpatient (REF) | payer OTHER | LOC: M SFHCWAGY 16:54 | PROVIDERS: ATTEND Advanced Practice Midwife | DX: Z12.4 Encounter for screening for malignant neoplasm of cervix (principal) | CPT/HCPCS: 87624; G0123 ==

== ENCOUNTER → 2020-06-10 | Outpatient (CLI) | payer OTHER ==
[2020-06-10 15:09] LABS: HEMATOCRIT 23.6 % (36.0-47.0); MEAN CORPUSCULAR HEMOGLOBIN 22.3 pg (27.0-33.0); MEAN CORPUSCULAR HGB CONC 28.4 g/dl (32.0-36.5); MEAN CORPUSCULAR VOLUME 78.4 fl (80.0-96.0); PLATELET COUNT, AUTOMATED 358 10^3/uL (150-450); RED BLOOD COUNT 3.01 10^6/uL (4.00-5.40); WHITE BLOOD COUNT 8.6 10^3/uL (4.0-10.0)
[2020-06-10 15:18] LABS: HEMOGLOBIN 6.7 g/dl (12.0-15.5)
[2020-06-10 15:28] LABS: ALBUMIN 3.3 GM/DL (3.2-5.2); ALT/SGPT 31 U/L (12-78); BILIRUBIN,TOTAL 0.1 MG/DL (0.2-1.0); BLOOD UREA NITROGEN 10 MG/DL (7-18); C REACTIVE PROTEIN QUANTITATIV 0.48 MG/DL (0.00-0.30); CARBON DIOXIDE LEVEL 27 MEQ/L (21-32); CHLORIDE LEVEL 108 MEQ/L (98-107); CREATININE FOR GFR 0.64 MG/DL (0.55-1.30); GLOMERULAR FILTRATION RATE > 60.0 (>60); GLUCOSE, FASTING 103 MG/DL (70-100); POTASSIUM SERUM 4.1 MEQ/L (3.5-5.1); SODIUM LEVEL 141 MEQ/L (136-145); TOTAL PROTEIN 6.1 GM/DL (6.4-8.2)
[2020-06-10 19:18] LABS: ERYTHROCYTE SEDIMENTATION RATE 23 mm/hr (0-20)
== END ==
LOC: M LAB 13:52
PROVIDERS: ATTEND Internal Medicine Gastroenterology
DX: K50.90 Crohn's disease, unspecified, without complications (principal); D50.9 Iron deficiency anemia, unspecified

== ENCOUNTER → 2020-06-18 | Outpatient (CLI) | payer OTHER ==
--- NOTE | 2020-06-18 07:57 | REP ---
INDICATION: N63.0 LT BREAST NODULE. One to 2 o'clock position left breast upper outer quadrant, patient reports that she notices this cyclic Fern. 3 cm from the nipple. COMPARISON: None. TECHNIQUE: Targeted left breast sonography. FINDINGS: Sonographic scanning of the left breast is performed in the 1-2 o'clock position in the area where the patient feels a palpable lump. Heterogeneous fibroglandular background echotexture is seen. No cyst, mass, acoustic shadowing, or architectural distortion is seen. IMPRESSION: BI-RADS category 1-findings. Clinical follow-up is advised. <Electronically signed by Clement Lara > 06/18/20 [id number]
== END ==
LOC: M WHC 06:11
PROVIDERS: ATTEND Advanced Practice Midwife
DX: R92.8 Other abnormal and inconclusive findings on diagnostic imaging of breast (principal); N63.21 Unspecified lump in the left breast, upper outer quadrant

== ENCOUNTER → 2020-06-21 | Outpatient (CLI) | payer OTHER ==
[2020-06-21 14:26] LABS: HEMATOCRIT 25.3 % (36.0-47.0); HEMOGLOBIN 7.2 g/dl (12.0-15.5); MEAN CORPUSCULAR HEMOGLOBIN 23.3 pg (27.0-33.0); MEAN CORPUSCULAR HGB CONC 28.5 g/dl (32.0-36.5); MEAN CORPUSCULAR VOLUME 81.9 fl (80.0-96.0); PLATELET COUNT, AUTOMATED 426 10^3/uL (150-450); RED BLOOD COUNT 3.09 10^6/uL (4.00-5.40)
== END ==
LOC: M LAB 13:32
PROVIDERS: ATTEND Internal Medicine Gastroenterology
DX: K50.90 Crohn's disease, unspecified, without complications (principal)

== ENCOUNTER → 2021-05-23 | Outpatient (CLI) | payer BC ==
[2021-05-23 13:43] LABS: BASO # 0.1 10^3/uL (0.0-0.2); BASO % 1.5 % (0.0-1.0); EOS # 0.2 10^3/uL (0.0-0.5); EOS % 2.6 % (0.0-3.0); HEMATOCRIT 29.5 % (36.0-47.0); HEMOGLOBIN 8.4 g/dl (12.0-15.5); LYMPH # 2.9 10^3/uL (1.5-5.0); MEAN CORPUSCULAR HEMOGLOBIN 22.6 pg (27.0-33.0); MEAN CORPUSCULAR HGB CONC 28.5 g/dl (32.0-36.5); MEAN CORPUSCULAR VOLUME 79.5 fl (80.0-96.0); MONO # 0.7 10^3/uL (0.0-0.8); MONO % 7.7 % (2.0-8.0); NEUTROPHILS # 4.7 10^3/uL (1.5-8.5); NEUTROPHILS % 53.9 % (36.0-66.0); PLATELET COUNT, AUTOMATED 392 10^3/uL (150-450); RED BLOOD COUNT 3.71 10^6/uL (4.00-5.40); WHITE BLOOD COUNT 8.6 10^3/uL (4.0-10.0)
[2021-05-23 14:05] LABS: ERYTHROCYTE SEDIMENTATION RATE 20 mm/hr (0-20)
[2021-05-23 14:31] LABS: ALBUMIN 3.8 GM/DL (3.2-5.2); ALT/SGPT 28 U/L (12-78); BILIRUBIN,TOTAL < 0.1 MG/DL (0.2-1.0); BLOOD UREA NITROGEN 10 MG/DL (7-18); CALCIUM LEVEL 8.9 MG/DL (8.5-10.1); CARBON DIOXIDE LEVEL 24 MEQ/L (21-32); CHLORIDE LEVEL 109 MEQ/L (98-107); CREATININE FOR GFR 0.74 MG/DL (0.55-1.30); GLOMERULAR FILTRATION RATE > 60.0 (>60); GLUCOSE, FASTING 67 MG/DL (70-100); POTASSIUM SERUM 3.8 MEQ/L (3.5-5.1); SODIUM LEVEL 140 MEQ/L (136-145); TOTAL PROTEIN 6.9 GM/DL (6.4-8.2); VITAMIN B12 LEVEL 279 PG/ML
[2021-05-23 14:32] LABS: C REACTIVE PROTEIN QUANTITATIV 0.47 MG/DL (0.00-0.30); RHEUMATOID FACTOR QUANT < 10.0 IU/ML (<15.0); TOTAL 25(OH) VITAMIN D 24.1 NG/ML (30.0-100.0)
== END ==
LOC: M LAB 12:48
PROVIDERS: ATTEND Internal Medicine
DX: K50.011 Crohn's disease of small intestine with rectal bleeding (principal)

== ENCOUNTER → 2021-07-11 | Outpatient (CLI) | payer BC ==
[2021-07-11 17:45] LABS: BASO # 0.1 10^3/uL (0.0-0.2); BASO % 1.1 % (0.0-1.0); EOS # 0.2 10^3/uL (0.0-0.5); EOS % 2.4 % (0.0-3.0); HEMATOCRIT 31.5 % (36.0-47.0); HEMOGLOBIN 9.2 g/dl (12.0-15.5); LYMPH # 2.8 10^3/uL (1.5-5.0); LYMPH % 33.1 % (24.0-44.0); MEAN CORPUSCULAR HEMOGLOBIN 22.5 pg (27.0-33.0); MEAN CORPUSCULAR HGB CONC 29.2 g/dl (32.0-36.5); MEAN CORPUSCULAR VOLUME 77.2 fl (80.0-96.0); MONO # 0.7 10^3/uL (0.0-0.8); NEUTROPHILS # 4.7 10^3/uL (1.5-8.5); NEUTROPHILS % 55.2 % (36.0-66.0); PLATELET COUNT, AUTOMATED 482 10^3/uL (150-450); RED BLOOD COUNT 4.08 10^6/uL (4.00-5.40); WHITE BLOOD COUNT 8.5 10^3/uL (4.0-10.0)
[2021-07-11 18:24] LABS: PERCENT SATURATION 47.9 % (13.2-45.0)
[2021-07-11 18:49] LABS: ERYTHROCYTE SEDIMENTATION RATE 15 mm/hr (0-20)
== END ==
LOC: M LAB 15:15
PROVIDERS: ATTEND Physician Assistant Medical
DX: K50.011 Crohn's disease of small intestine with rectal bleeding (principal)

== ENCOUNTER → 2021-07-11 | Outpatient (CLI) | payer BC | LOC: M LAB 15:13 | PROVIDERS: ATTEND Internal Medicine | DX: K50.011 Crohn's disease of small intestine with rectal bleeding (principal) ==

== ENCOUNTER → 2022-07-06 | Outpatient (REF) | payer BC ==
[~2022-07-06] MED LIST changes: +LEVO1TAB40 PO; -LEVO750T13 PO
== END ==
LOC: M PLALAB 16:27
PROVIDERS: ATTEND Nurse Practitioner Family
DX: R39.15 Urgency of urination (principal)

== ENCOUNTER → 2023-09-17 | Outpatient (CLI) | payer BC ==
[2023-09-17 16:17] LABS: HEMATOCRIT 37.4 % (36.0-47.0); HEMOGLOBIN 11.7 g/dl (12.0-15.5); MEAN CORPUSCULAR HEMOGLOBIN 27.2 pg (27.0-33.0); MEAN CORPUSCULAR HGB CONC 31.3 g/dl (32.0-36.5); PLATELET COUNT, AUTOMATED 471 10^3/uL (150-450); WHITE BLOOD COUNT 10.5 10^3/uL (4.0-10.0)
[2023-09-17 16:25] LABS: ERYTHROCYTE SEDIMENTATION RATE 6 mm/hr (0-20)
[2023-09-17 16:44] LABS: IRON (FE) 42 UG/DL (50-170); PERCENT SATURATION 12.9 % (13.2-45.0); TOTAL IRON BINDING CAPACITY 326 UG/DL (250-425)
[2023-09-17 16:45] LABS: ALBUMIN 3.8 G/DL (3.2-5.2); ALKALINE PHOSPHATASE 70 U/L (46-116); ALT/SGPT 21 U/L (7.0-40); AST/SGOT 24 U/L (<34); BILIRUBIN,DIRECT < 0.1 MG/DL (<0.4); BILIRUBIN,TOTAL 0.3 MG/DL (0.3-1.2); BLOOD UREA NITROGEN 11 MG/DL (9-23); CALCIUM LEVEL 9.4 MG/DL (8.5-10.1); CARBON DIOXIDE LEVEL 28 MMOL/L (20-31); CHLORIDE LEVEL 102 MMOL/L (98-107); CREATININE FOR GFR 0.79 MG/DL (0.55-1.30); GLOMERULAR FILTRATION RATE > 60.0 (>60); GLUCOSE, FASTING 88 MG/DL (60-100); POTASSIUM SERUM 4.2 MMOL/L (3.5-5.1); SODIUM LEVEL 138 MMOL/L (136-145); TOTAL PROTEIN 6.7 G/DL (5.7-8.2)
[2023-09-17 16:47] LABS: VITAMIN B12 LEVEL 444 PG/ML (211-911)
[2023-09-17 16:48] LABS: FOLATE > 24.0 NG/ML (>5.4)
== END ==
LOC: M LAB 15:31
PROVIDERS: ATTEND Physician Assistant Medical
DX: K50.018 Crohn's disease of small intestine with other complication (principal)

== ENCOUNTER → 2024-03-02 | Outpatient (REF) | payer BC ==
[2024-03-06 16:42] LABS: HPV APTIMA Not Detected (Not Detected)
== END ==
LOC: M PLALAB 10:30
PROVIDERS: ATTEND Advanced Practice Midwife
DX: Z12.4 Encounter for screening for malignant neoplasm of cervix (principal); Z11.51 Encounter for screening for human papillomavirus (HPV)
CPT/HCPCS: 87624; G0123

== ENCOUNTER → 2024-08-21 | Outpatient (CLI) | payer BC ==
[2024-08-21 18:16] LABS: HEMATOCRIT 34.3 % (36.0-47.0); HEMOGLOBIN 10.4 g/dl (12.0-15.5); MEAN CORPUSCULAR HGB CONC 30.3 g/dl (32.0-36.5); MEAN CORPUSCULAR VOLUME 85.8 fl (80.0-96.0); PLATELET COUNT, AUTOMATED 444 10^3/uL (150-450); WHITE BLOOD COUNT 9.8 10^3/uL (4.0-10.0)
[2024-08-21 18:38] LABS: HEMOGLOBIN A1c 4.9 % (4.0-6.0)
[2024-08-21 18:52] LABS: ALBUMIN 3.7 G/DL (3.2-5.2); ALKALINE PHOSPHATASE 62 U/L (35-104); ALT/SGPT 28 U/L (7.0-40); AST/SGOT 19 U/L (<34); BILIRUBIN,TOTAL 0.2 MG/DL (0.3-1.2); BLOOD UREA NITROGEN 10 MG/DL (9-23); CALCIUM LEVEL 8.7 MG/DL (8.5-10.1); CARBON DIOXIDE LEVEL 29 MMOL/L (20-31); CHLORIDE LEVEL 105 MMOL/L (98-107); CREATININE FOR GFR 0.73 MG/DL (0.55-1.30); GLOMERULAR FILTRATION RATE > 90.0 (>60); GLUCOSE, FASTING 86 MG/DL (60-100); PROLACTIN 15.39 NG/ML; SODIUM LEVEL 142 MMOL/L (136-145); TOTAL PROTEIN 6.4 G/DL (5.7-8.2)
[2024-08-21 18:53] LABS: FREE T4 1.03 NG/DL (0.89-1.76); THYROID PEROXIDASE ANTIBODY 49 U/ML (<60.0)
[2024-08-21 18:54] LABS: TESTOSTERONE 19 NG/DL (14-76)
[2024-08-21 18:55] LABS: TOTAL 25(OH) VITAMIN D 27.1 NG/ML (20.0-100.0)
[2024-08-21 20:32] LABS: HIV 1&2 SCREEN NEGATIVE (NEGATIVE)
[2024-08-21 20:40] LABS: HEPATITIS C VIRUS ABY INDEX 0.02 INDEX (<0.8)
[2024-08-21 21:22] LABS: HEPATITIS B SURFACE ANTIGEN NEGATIVE (NEGATIVE)
[2024-08-24 13:51] LABS: HERPES ZOSTER, VARICELLA IgG 18.4 S/CO (>=1.00)
== END ==
LOC: M LAB 16:00
PROVIDERS: ATTEND Obstetrics & Gynecology Reproductive Endocrinology
DX: Z31.41 Encounter for fertility testing (principal)

== ENCOUNTER → 2024-08-26 | Outpatient (CLI) | payer BC ==
[2024-08-26 11:42] LABS: FOLLICLE STIMULATING HORMONE 6.1 mIU/ML; PROGESTERONE 0.52 NG/ML
[2024-08-26 11:43] LABS: LUTEINIZING HORMONE 5.9 mIU/ML
== END ==
LOC: M LAB 10:29
PROVIDERS: ATTEND Obstetrics & Gynecology Reproductive Endocrinology
DX: Z31.41 Encounter for fertility testing (principal)

== ENCOUNTER → 2024-08-28 | Outpatient (CLI) | payer BC ==
[2024-08-28 10:25] LABS: HCG, SERUM QUANTITATIVE < 2.6 MIU/ML (<4.2)
[2024-08-28 10:28] LABS: FOLLICLE STIMULATING HORMONE 5.6 mIU/ML
[2024-08-28 10:29] LABS: LUTEINIZING HORMONE 5.7 mIU/ML; THYROID STIMULATING HORMONE 1.959 uIU/ML (0.55-4.78)
== END ==
LOC: M RAD 08:57
PROVIDERS: ATTEND Obstetrics & Gynecology Reproductive Endocrinology
DX: Z31.83 Encounter for assisted reproductive fertility procedure cycle (principal)

== ENCOUNTER → 2024-11-20 | Outpatient (CLI) | payer BC ==
[2024-11-20 10:27] LABS: HCG, SERUM QUANTITATIVE < 2.6 MIU/ML (<4.2)
[2024-11-20 10:31] LABS: LUTEINIZING HORMONE 5.9 mIU/ML; PROGESTERONE 0.47 NG/ML
[2024-11-20 10:32] LABS: ESTRADIOL 51.0 PG/ML
== END ==
LOC: M RAD 08:37
PROVIDERS: ATTEND Obstetrics & Gynecology Reproductive Endocrinology
DX: Z31.83 Encounter for assisted reproductive fertility procedure cycle (principal); N83.01 Follicular cyst of right ovary; N83.02 Follicular cyst of left ovary

== ENCOUNTER → 2024-11-29 | Outpatient (CLI) | payer BC ==
[2024-11-29 10:18] LABS: ESTRADIOL 236.7 PG/ML; LUTEINIZING HORMONE 6.3 mIU/ML
[2024-11-29 10:19] LABS: PROGESTERONE 0.93 NG/ML
== END ==
LOC: M LAB 09:09
PROVIDERS: ATTEND Obstetrics & Gynecology Reproductive Endocrinology
DX: Z31.83 Encounter for assisted reproductive fertility procedure cycle (principal)

== ENCOUNTER → 2024-11-29 | Outpatient (CLI) | payer BC | LOC: M WHC 06:56 | PROVIDERS: ATTEND Obstetrics & Gynecology Reproductive Endocrinology | DX: Z31.83 Encounter for assisted reproductive fertility procedure cycle (principal); N83.01 Follicular cyst of right ovary; N83.02 Follicular cyst of left ovary ==

== ENCOUNTER → 2024-12-01 | Outpatient (CLI) | payer BC ==
[2024-12-01 09:33] LABS: LUTEINIZING HORMONE 4.5 mIU/ML
[2024-12-01 09:34] LABS: ESTRADIOL 997.6 PG/ML; PROGESTERONE 1.59 NG/ML
== END ==
LOC: M LAB 08:28
PROVIDERS: ATTEND Obstetrics & Gynecology Reproductive Endocrinology
DX: Z31.83 Encounter for assisted reproductive fertility procedure cycle (principal)

== ENCOUNTER → 2024-12-01 | Outpatient (CLI) | payer BC | LOC: M WHC 10:40 | PROVIDERS: ATTEND Obstetrics & Gynecology Reproductive Endocrinology | DX: Z31.83 Encounter for assisted reproductive fertility procedure cycle (principal) ==

== ENCOUNTER → 2024-12-20 | Outpatient (CLI) | payer BC ==
[2024-12-20 10:07] LABS: HCG, SERUM QUANTITATIVE < 2.6 MIU/ML (<4.2)
[2024-12-20 10:11] LABS: LUTEINIZING HORMONE 4.3 mIU/ML
[2024-12-20 10:12] LABS: ESTRADIOL 57.2 PG/ML; FREE T4 1.28 NG/DL (0.89-1.76)
[2024-12-20 10:13] LABS: PROGESTERONE 0.61 NG/ML
== END ==
LOC: M RAD 08:15
PROVIDERS: ATTEND Obstetrics & Gynecology Reproductive Endocrinology
DX: Z31.83 Encounter for assisted reproductive fertility procedure cycle (principal)

== ENCOUNTER → 2025-01-08 | Outpatient (CLI) | payer BC ==
[2025-01-08 10:55] LABS: ESTRADIOL 2879.7 PG/ML; PROGESTERONE 32.86 NG/ML
== END ==
LOC: M LAB 09:37
PROVIDERS: ATTEND Obstetrics & Gynecology Reproductive Endocrinology
DX: Z31.49 Encounter for other procreative investigation and testing (principal)

== ENCOUNTER → 2025-01-12 | Outpatient (CLI) | payer BC ==
[2025-01-12 09:09] LABS: HCG, SERUM QUANTITATIVE < 2.6 MIU/ML (<4.2)
[2025-01-12 09:13] LABS: PROGESTERONE 50.77 NG/ML
== END ==
LOC: M LAB 06:57
PROVIDERS: ATTEND Obstetrics & Gynecology Reproductive Endocrinology
DX: Z32.00 Encounter for pregnancy test, result unknown (principal)

== ENCOUNTER → 2025-01-19 | Outpatient (CLI) | payer BC ==
[2025-01-19 08:23] LABS: HCG, SERUM QUANTITATIVE < 2.6 MIU/ML (<4.2)
[2025-01-19 08:27] LABS: FREE T4 1.21 NG/DL (0.89-1.76); LUTEINIZING HORMONE 6.9 mIU/ML
[2025-01-19 08:28] LABS: ESTRADIOL 104.3 PG/ML; PROGESTERONE < 0.21 NG/ML
== END ==
LOC: M RAD 06:33
PROVIDERS: ATTEND Obstetrics & Gynecology Reproductive Endocrinology
DX: Z31.83 Encounter for assisted reproductive fertility procedure cycle (principal)

== ENCOUNTER → 2025-01-26 | Outpatient (CLI) | payer BC ==
[2025-01-26 07:56] LABS: ESTRADIOL 134.5 PG/ML; LUTEINIZING HORMONE 12.2 mIU/ML; PROGESTERONE < 0.21 NG/ML
== END ==
LOC: M RAD 06:43
PROVIDERS: ATTEND Obstetrics & Gynecology Reproductive Endocrinology
DX: Z31.83 Encounter for assisted reproductive fertility procedure cycle (principal)

== ENCOUNTER → 2025-01-29 | Outpatient (CLI) | payer BC ==
[2025-01-29 09:10] LABS: LUTEINIZING HORMONE 12.9 mIU/ML; PROGESTERONE < 0.21 NG/ML
[2025-01-29 09:11] LABS: ESTRADIOL 275.2 PG/ML
== END ==
LOC: M RAD 06:51
PROVIDERS: ATTEND Obstetrics & Gynecology Reproductive Endocrinology
DX: Z31.83 Encounter for assisted reproductive fertility procedure cycle (principal); N97.9 Female infertility, unspecified

== ENCOUNTER → 2025-02-01 | Outpatient (CLI) | payer BC | LOC: M WHC 06:42 | PROVIDERS: ATTEND Obstetrics & Gynecology Reproductive Endocrinology | DX: Z31.83 Encounter for assisted reproductive fertility procedure cycle (principal) ==

== ENCOUNTER → 2025-02-01 | Outpatient (CLI) | payer BC ==
[2025-02-01 10:25] LABS: PLATELET COUNT, AUTOMATED 480 10^3/uL (150-450)
[2025-02-01 10:37] LABS: LUTEINIZING HORMONE 21.0 mIU/ML
[2025-02-01 10:38] LABS: ESTRADIOL 575.9 PG/ML; PROGESTERONE 0.22 NG/ML
== END ==
LOC: M PLALAB 06:45
PROVIDERS: ATTEND Obstetrics & Gynecology Reproductive Endocrinology
DX: Z31.83 Encounter for assisted reproductive fertility procedure cycle (principal)

== ENCOUNTER → 2025-04-04 | Outpatient (CLI) | payer BC ==
[2025-04-04 07:23] LABS: HCG, SERUM QUANTITATIVE < 2.6 MIU/ML (<4.2)
[2025-04-04 07:27] LABS: PROGESTERONE 0.59 NG/ML
[2025-04-04 07:28] LABS: ESTRADIOL 72.0 PG/ML; LUTEINIZING HORMONE 6.1 mIU/ML
== END ==
LOC: M LAB 06:32
PROVIDERS: ATTEND Obstetrics & Gynecology Reproductive Endocrinology
DX: Z34.83 Encounter for supervision of other normal pregnancy, third trimester (principal)

== ENCOUNTER → 2025-04-11 | Outpatient (CLI) | payer BC ==
[2025-04-11 09:40] LABS: LUTEINIZING HORMONE 7.8 mIU/ML; PROGESTERONE < 0.21 NG/ML
[2025-04-11 09:41] LABS: ESTRADIOL 132.5 PG/ML
== END ==
LOC: M RAD 08:26
PROVIDERS: ATTEND Obstetrics & Gynecology Reproductive Endocrinology
DX: Z31.83 Encounter for assisted reproductive fertility procedure cycle (principal)

== ENCOUNTER → 2025-04-25 | Outpatient (CLI) | payer BC ==
[2025-04-25 07:35] LABS: ESTRADIOL 177.0 PG/ML
[2025-04-25 07:47] LABS: PROGESTERONE 59.95 NG/ML
== END ==
LOC: M LAB 06:30
PROVIDERS: ATTEND Obstetrics & Gynecology Reproductive Endocrinology
DX: Z31.49 Encounter for other procreative investigation and testing (principal)